=== PATIENT | male | born 1995 | race Asian ===

== ENCOUNTER 2018-12-14 12:01 | Emergency (ER) | payer OTHER | END 2018-12-14 14:31 | disposition home or self-care (01) | LOC: FTE 12:01 | DX: S49.91XA Unspecified injury of right shoulder and upper arm, initial encounter (principal); W01.0XXA Fall on same level from slipping, tripping and stumbling without subsequent striking against object, initial encounter; Y92.9 Unspecified place or not applicable | CPT/HCPCS: 29125; 73090; 99283-25 ==